=== PATIENT | male | born 1945 | race Caucasian/White ===

== ENCOUNTER → 2019-04-23 | Outpatient (CLI) | payer MEDICARE ==
[~2019-04-23] MED LIST: ASPI325T8 PO; ATOR40TA59 PO; DUTA0.5C PO; EZET10TA18 PO; INSU100V8 SQ; METF500T16 PO; OLME20TA17 PO; SOTA120T PO; TAMS0.4C2 PO
--- NOTE | 2019-04-23 16:37 | RAD ---
MR#: [id number] Date of Study: 04/23/2019 Ordering Physician: JORJE UNGER, Referring Physician: JORJE UNGER, Tech: Tiny Pickens, NIVIA, RVT, RTR APPROVED REPORT Patient Location: OUT-PATIENT Risk Factors Hypertension Smoking Duplex Results A/PTransverseLongitudinal Proximal Aorta 2.3cm2.3cm2.44cm Mid Aorta 2.7cm3.3cm3.2cm Distal Aorta 3.3cm3.0cm3cm Findings Limited images due to bowel gas. The proximal and mid abdominal aorta measure approximately 2.7 x 3.3 x 3.3 cm. No focal aneurysm is n oted. There is calcific plaque throughout the aorta. The distal aorta is not well visualized. Critical Notification Critical Value: No <Conclusion> Limited study due to bowel gas, no focal aneurysmal dilatation noted within these limitations. Signed by : Jorje Unger, Electronically Approved : 04/23/2019 16:36:44
--- NOTE | 2019-04-23 16:38 | RAD ---
MR#: [id number] Date of Study: 04/23/2019 Ordering Physician: JORJE UNGER, Referring Physician: JORJE UNGER, Tech: Tiny Pickens RDMS, RVT, RTR APPROVED REPORT Patient Location : OUT-PATIENT Indications Lower Extremity Edema : Bilateral Findings Grayscale images of the bilateral saphenofemoral junctions do not reveal any obvious evidence of thro mbus. The right great saphenous vein measures 4.3 mm and does not show any evidence of reflux. The left gre at saphenous vein measures 3.7 mm and does not show any evidence of reflux. The bilateral lesser saphenous veins are also negative for reflux. Critical Notification Critical Value: No <Conclusion> 1. No significant venous reflux noted bilaterally Signed by : Jorje Unger, Electronically Approved : 04/23/2019 16:37:51
--- NOTE | 2019-04-23 16:39 | RAD ---
MR#: [id number] Date of Study: 04/23/2019 Ordering Physician: JORJE UGNER, Referring Physician: JORJE UNGER, Tech: Tiny Pickens, RDMS, RVT, RTR APPROVED REPORT Patient Location: OUT-PATIENT Indications Claudication:Bilaterally VELOCITY AND DOPPLER WAVEFORM ANALYSIS RIGHT cm/secWaveformSeverity LEFT cm/secWaveform Severity pCFA 149.0TriphasicpCFA 119.0Triphasic Prof Fem Art. 74.5TriphasicProf Fem Art. 85.9Triphasic Fem Art Prox. 108.5TriphasicFem Art Prox. 103.3Triphasic Fem Art Mid. 112.8TriphasicFem Art Mid. 103.3Triphasic Fem Art Dist. 116.5TriphasicFem Art Dist. 112.0Triphasic Pop Art(AK) 72.7TriphasicPop Art(AK) 66.6Triphasic POTATO PEELING MACHINE OPERATOR Prox. 73.5TriphasicPTA Prox. 64.9Triphasic POTATO PEELING MACHINE OPERATOR Dist. 90.1TriphasicPTA Dist. 95.1Triphasic Per Art Prox. 77.7TriphasicPer Art Prox. 87.9Triphasic CLAUDIO Prox. 70.2TriphasicATA Prox. 75.2Biphasic DPA 66.1BiphasicDPA 101.2Triphasic Findings Grayscale images of the bilateral lower extremity arterial vessels demonstrate mild diffuse calcific plaque. No focal obstruction is noted. Spectral waveforms are triphasic throughout the arterial course and below the knee. No focal obstruct ion noted. Critical Notification Critical Value: No <Conclusion> 1. Normal triphasic waveforms throughout the arterial course with minimal plaque. No focal obstructio n noted Signed by : Jorje Unger, Electronically Approved : 04/23/2019 16:39:35
== END | disposition home or self-care (01) ==
LOC: US 12:33
PROVIDERS: ATTEND Internal Medicine Cardiovascular Disease
DX: R60.0 Localized edema (principal); I73.9 Peripheral vascular disease, unspecified; I10 Essential (primary) hypertension; F17.200 Nicotine dependence, unspecified, uncomplicated
CPT/HCPCS: 76770; 93925; 93970

== ENCOUNTER → 2019-05-10 | Outpatient (CLI) | payer MEDICARE, OTHER ==
[~2019-05-10] MED LIST changes: +REGADENOSON 0.4 MG/5 ML DISP.SYRIN. IV ONE
--- NOTE | 2019-05-10 09:52 | RAD ---
MR#: [id number] Date of Study: 05/10/2019 Ordering Physician: JORJE UNGER, Referring Physician: JORJE UNGER, Tech: Jules Gale MBA, RDMS, RVT, RDCS, RTR APPROVED REPORT Patient Location: OUT-PATIENT Laterality:Bilateral Indications claudication Doppler Spectral Velocity Analysis Right Left pCCA 76/14 cm/spCCA 123/32 cm/s mCCA 73/13 cm/smCCA 101/32 cm/s dCCA 69/17 cm/sdCCA 95/31 cm/s Bulb 72/17 cm/sBulb 112/21 cm/s ECA 153/ cm/sECA 127/ cm/s pICA 50/17 cm/spICA 93/23 cm/s Lillie 44/14 cm/smICA 81/24 cm/s dICA 68/27 cm/sdICA 82/37 cm/s Vert. 51/ cm/sVert. 45/ cm/s Subcl. 110/ cm/sSubcl. 145/ cm/s ICA/CCA 0.89ICA/CCA 0.76 Findings Grayscale images of the bilateral common carotid, internal and external carotid vessels reveals mild plaque but no evidence of high-grade stenosis. Spectral waveforms in the right internal carotid artery are within normal limits. Overall 0 to less t monroe 50% stenosis based on velocity criteria. The external carotid artery velocities are elevated sugg estive of moderate stenosis. On the left similarly the internal carotid vessels are grossly unremarkable. Velocities are within no rmal limits and overall 0 to less than 50% stenosis. The left external carotid artery velocity is aga in mildly elevated suggestive of moderate disease. Normal ICA to CCA ratios bilaterally. Critical Notification Critical Value: No <Conclusion> 1. No significant carotid occlusive disease bilaterally Signed by : Jorje Unger, Electronically Approved : 05/10/2019 09:51:57
--- NOTE | 2019-05-10 09:54 | CARD ---
MR#: [id number] Date of Study: 05/10/2019 Ordering Physician: JORJE UNGER, Referring Physician: JORJE UNGER, Tech: Liv Higgins [facility] APPROVED REPORT EXAM: Two-dimensional and M-mode echocardiogram with Doppler and color Doppler. Other Information Quality : AverageHR: 90bpm Rhythm : NSR INDICATION Dyspnea 2D DIMENSIONS RVDd3.7 (2.9-3.5cm)Left Atrium(2D)4.6 (1.6-4.0cm) IVSd1.3 (0.7-1.1cm)Aortic Root(2D)3.2 (2.0-3.7cm) LVDd5.7 (3.9-5.9cm)LVOT Diameter2.2 (1.8-2.4cm) PWd1.1 (0.7-1.1cm)LVDs4.3 (2.5-4.0cm) FS (%) 25.5 %SV81.0 ml LVEF(%)50.0 (>50%) M-Mode DIMENSIONS Left Atrium(MM)4.72 (2.5-4.0cm)Aortic Root3.39 (2.2-3.7cm) Aortic Valve AoV Peak Petr.106.0cm/sAoV VTI23.6cm AO Peak GR.4.5mmHgLVOT Peak Petr.87.5cm/s AO Mean GR.2mmHgAVA (VMAX)3.13cm2 RODDY (VTI)3.00cm2 Mitral Valve MV E Mbqaokrq95.9cm/sMV E Peak Gr.101mmHg MV DECEL [id number] A Rogbmwmi88.1cm/s E/A Ratio1.4 Pulmonary Valve PV Peak Temngojf081.8cm/s Tricuspid Valve TR P. Sazlwvtj960fh/sRAP YYXFOEVD6iqJn TR Peak Gr.57whXjEFQI28guUm LEFT VENTRICLE The left ventricle is normal size. There is mild concentric left ventricular hypertrophy. Left ventri aicha systolic function is low normal. The Ejection Fraction is 50-55%. There is normal LV segmental wa ll motion. Transmitral Doppler flow pattern is Grade II-pseudonormal filling dynamics. RIGHT VENTRICLE The right ventricle is mildly dilated. There is normal right ventricular wall thickness. The right ve ntricular systolic function is normal. ATRIA The left atrium is mildly dilated. The right atrium is mildly dilated. The interatrial septum is inta ct with no evidence for an atrial septal defect or patent foramen ovale as noted on 2-D or Doppler im aging. AORTIC VALVE The aortic valve is normal in structure and function. The aortic valve is trileaflet. Doppler and Col or Flow revealed no significant aortic regurgitation. There is no significant aortic valvular stenosi s. There is no aortic valvular vegetation. MITRAL VALVE The mitral valve is normal in structure and function. There is no evidence of mitral valve prolapse. There is no mitral valve stenosis. Doppler and Color-flow revealed mild mitral regurgitation. TRICUSPID VALVE The tricuspid valve is normal in structure and function. Doppler and Color Flow revealed trace tricus pid regurgitation. The PA pressure was estimated at 30 mmHg. There is no tricuspid valve prolapse or vegetation. There is no tricuspid valve stenosis. PULMONIC VALVE The pulmonic valve is not well visualized. GREAT VESSELS The aortic root is normal in size. The ascending aorta is normal in size. The IVC is normal in size a nd collapses >50% with inspiration. PERICARDIAL EFFUSION There is no evidence of significant pericardial effusion. Critical Notification Critical Value: No <Conclusion> Left ventricle systolic function is low normal. The Ejection Fraction is 50-55%. There is normal LV segmental wall motion. Doppler and Color-flow revealed mild mitral regurgitation. Signed by : Jorje Unger, Electronically Approved : 05/10/2019 09:53:34
--- NOTE | 2019-05-10 12:55 | RAD ---
MR#: [id number] Date of Study: 05/10/2019 Ordering Physician: JORJE UNGER, Referring Physician: SEBASTIEN GREENBERG Tech: MANOJ Hansen ARRT (R) (N) APPROVED REPORT Test Type: Pharmacological Stress Nurse/Tech: Violeta Raygoza RN Test Indications: Dyspnea Cardiac History: High cholesterol, Diabetes,former smoker Medications: See Electronic Medical Record Medical History: See Electronic Medical Record Resting ECG: SR Resting Heart Rate: 64 bpm Resting Blood Pressure: 120/62mmHg Pretest Chest Pain: No chest pain Nurse/Tech Notes S1,S2 and lungs clear to auscultation. Consent: The procedure was explained to the patient in lay terms. Informed consent was witnessed. Frank eout was entered into [facility]. History and Stress Test performed by MANOJ Hansen ARRT (R) (N) Pharm. Details Pharmacologic stress testing was performed using 0.4mg per 5ml of regadenoson given intravenously ove r 7-10 seconds. Stress Symptoms No chest pain or symptoms. POST EXERCISE Reason for Termination: Infusion complete Target HR: No Max HR: 80 bpm Max Blood Pressure: 138/60mmHg Blood Pressure response to exercise: Normal blood pressure response during stress. Heart Rate response to exercise: WNL Chest Pain: No. Arrhythmia: No. ST Change: No. INTERPRETATION Stress EKG Conclusion: Baseline EKG showed sinus rhythm. No ischemic changes at peak stress. No arr hythmias. Imaging Protocol IMAGE PROTOCOL: Rest Tc-99m/stress Tc-99m 1 day Rest: Stress: Viability: Radiopharm.Tc99m YlvdyqcipJo31t Sestamibi Hvph36kJn 33mCi Img Date 05/10/2019 05/10/2019 Inj-Img Mbww21hcq. 60min. Rest Admin Site:IV - Left AntecubitalAdministrator:MANOJ Hansen ARRT (R)(N) Stress Admin Site: IV - Left AntecubitalAdministrator: RT Olga Layton)(N) STRESS DATA End Diast. Vol.98.0mlLVEDV index BSA42.0ml End Syst. Vol.26.0mlLVESV index BSA11.0ml Myocardial Tefq777.0gEject. Iyzaqkzg11.0% Stress Scores Regional WT0.00Summed WT3.00 Regional WM0.00Summed WM2.00 Study quality was good. Left Ventricular size was Normal at Rest and Stress. Lung uptake was . Left Ventricular ejection fraction is 73%. The rest and stress images show normal perfusion, normal contraction and thickening. LV Perf. Quant 17 Seg. SSS0.00 17 Seg. SRS2.00 17 Seg. SDS0.00 Stress Defect Extent (% LAD)0.00Rest Defect Extent (% LAD)0.00Rev. Defect Extent (% LAD)0.00 Stress Defect Extent (% LCX) 0.00Rest Defect Extent (% LCX)0.00Rev. Defect Extent (% LCX)0.00 Stress Defect Extent (% RCA)0.00Rest Defect Extent (% RCA)0.00Rev. Defect Extent (% RCA)0.00 Stress Defect Extent (% ANASTASIIA)0.00Rest Defect Extent (% ANASTASIIA)0.00Rev. Defect Extent (% ANASTASIIA)0.00 Conclusion 1. Regadenoson cardioisotope stress test did not show any evidence of ischemia or infarct. 2. Normal left ventricular systolic function with ejection fraction calculated at 73%. 3. Low risk for cardiac events. Signed by : Ovidio Vazquez, Electronically Approved : 05/10/2019 12:55:05
== END | disposition home or self-care (01) ==
LOC: NM 07:32
PROVIDERS: ATTEND Internal Medicine Cardiovascular Disease
DX: I34.0 Nonrheumatic mitral (valve) insufficiency (principal); E78.00 Pure hypercholesterolemia, unspecified; E11.9 Type 2 diabetes mellitus without complications; I73.9 Peripheral vascular disease, unspecified; I65.23 Occlusion and stenosis of bilateral carotid arteries; Z87.891 Personal history of nicotine dependence
CPT/HCPCS: 78452; 93017; 93306; 93880; A9500; J2785

== ENCOUNTER → 2019-07-14 | Outpatient (CLI) | payer MEDICARE ==
[~2019-07-14] MED LIST changes: +ALBUTEROL SULFATE 2.5 MG/3 ML NEBU. NEB ONE; -EZET10TA18 PO; +EZET10TA20 PO; -REGADENOSON 0.4 MG/5 ML DISP.SYRIN. IV ONE
--- NOTE | 2019-07-22 13:56 | RESP ---
DATE OF SERVICE: 07/14/2019 PULMONARY FUNCTION TEST ATTENDING PHYSICIAN: Guevara Hernandez MD The patient's FVC was 2.46, which is 54% predicted; FEV1 1.31, which is 40% predicted. The FEV1/FVC ratio was reduced. There was 17% improvement in FVC and 11% improvement in FEV1 post-bronchodilator. Lung volumes showed increased total lung capacity and increased residual volume. Diffusion capacity was normal. IMPRESSION: 1. Moderate obstructive airway disease with an excellent response to bronchodilators, suggesting a component of reactive airway disease as well. 2. Lung volumes consistent with air trapping and hyperinflation. 3. Normal diffusion capacity. EDU ROGERS MD DR: PROSPER/kurtis JOB#: [id number] / [id number]
== END | disposition home or self-care (01) ==
LOC: PF 09:56
PROVIDERS: ATTEND Internal Medicine Cardiovascular Disease
DX: J98.8 Other specified respiratory disorders (principal); I48.91 Unspecified atrial fibrillation; I10 Essential (primary) hypertension; E11.9 Type 2 diabetes mellitus without complications; Z87.891 Personal history of nicotine dependence; Z79.84 Long term (current) use of oral hypoglycemic drugs
CPT/HCPCS: 94060; 94640; 94729; J7613

== ENCOUNTER → 2019-08-25 | Outpatient (CLI) | payer MEDICARE ==
[~2019-08-25] MED LIST changes: -ALBUTEROL SULFATE 2.5 MG/3 ML NEBU. NEB ONE; +ZOLPIDEM 5 MG TABLET. PO ONE
--- NOTE | 2019-09-01 11:00 | SLEEP ---
DATE OF STUDY: 08/25/2019 SLEEP STUDY ATTENDING PHYSICIAN: Dr. Amilcar Mattson REFERRING PHYSICIAN: Kofi Iqbal MD The patient is a 74-year-old who weighs 235 pounds with a BMI of 33. The patient's Cleveland score was 10. The patient underwent split night study performed at [facility]. During the night study, the patient spent 484 minutes in bed and slept for 412 minutes with a sleep efficiency of 85%. Sleep latency was 42 minutes with a REM latency of 206 minutes. Sleep architecture showed normal stage 1 and stage 2 sleep, increased slow wave and normal REM sleep. During the initial diagnostic portion of the study, the patient slept for 88 minutes. During that time, there was 1 obstructive apnea, no mixed or central apneas and 37 hypopneas. The patient's apnea hypopnea index was 26 per hour, supine index 36 per hour. REM sleep was not seen during the diagnostic portion of the study. EKG monitoring revealed an average heart rate of 61 beats per minute, no sustained arrhythmias observed. PLMS were seen at index of 100 per hour and 5 per hour caused EEG arousals. Nocturnal oximetry study during the diagnostic portion showed a mean oxygen saturation in the mid to high 80s with the lowest of 81%. The patient met the criteria for CPAP initiation. It was started at 5 cm water and titrated up to 18 cm water. At the final pressure, the patient slept for 58 minutes. The patient had supine and a brief REM sleep. The patient's AHI was reduced to 0 per hour and oxygen saturation remained above 88%. The patient used a large size full face mask. IMPRESSION: 1. Moderate sleep apnea-hypopnea syndrome with worsening during supine sleep. Absence of REM sleep during the diagnostic portion can underestimate the severity of sleep apnea. 2. Nocturnal hypoxia secondary to UZIEL, but resolved with CPAP. 3. Severe PLMS. RECOMMENDATIONS: 1. CPAP at 18 cm water completely eliminated the patient's sleep apnea and should be used on a nightly basis. 2. Follow up in 4-6 weeks to assess compliance with CPAP and to document clinical improvement. 3. Weight loss is strongly advised. 4. Avoid LATHE TURNER depressants. 5. Cautioned regarding driving until symptoms of sleep apnea resolve with the use of CPAP. 6. The patient should also be further evaluated for symptoms of restless legs during the day and if present, it can be treated with dopaminergic agonist agents. EDU ROGERS MD DR: PROSPER/kurtis JOB#: [id number] / [id number] Jyoti Hays MD, GEORGE MD
== END | disposition home or self-care (01) ==
LOC: SLPLAB 18:57
PROVIDERS: ATTEND Internal Medicine Pulmonary Disease
DX: G47.33 Obstructive sleep apnea (adult) (pediatric) (principal); G47.34 Idiopathic sleep related nonobstructive alveolar hypoventilation; G47.61 Periodic limb movement disorder
CPT/HCPCS: 95810

== ENCOUNTER → 2019-08-27 | Outpatient (CLI) | payer MEDICARE ==
[~2019-08-27] MED LIST changes: -ZOLPIDEM 5 MG TABLET. PO ONE
--- NOTE | 2019-08-27 12:53 | RAD ---
EXAM: Chest CT without intravenous contrast. HISTORY: Smoking history. Congestion. TECHNIQUE: Computed tomographic images of the chest were obtained without contrast. Multiplanar reformatting was performed. *One or more of the following individualized dose reduction techniques were utilized for this examination: 1. Automated exposure control. 2. Adjustment of the mA and/or kV according to patient size. 3. Use of iterative reconstruction technique. COMPARISON: Chest radiograph dated 04/28/2012. FINDINGS: The heart is normal in size. There is a prominent main pulmonary artery. The aorta is normal in caliber and demonstrates normal branching pattern. There are few nonspecific lymph nodes within the mediastinum and bilateral hilar regions. The majority of these are calcified and consistent with healed granulomatous disease. No suspicious noncalcified lymph node is seen. There is mild pulmonary emphysema. There is no pleural effusion or pneumothorax. There is slight increased bilateral extrapleural fat. There is lingular and right middle lobe atelectasis or scarring. There is a 6 mm solid nodule within the anterior left lower lobe. There is an adjacent calcification due to healed granulomatous disease. There is nonspecific groundglass opacity within the posterior right lung base which is likely due to atelectasis. There is a large peripherally calcified nodule within the right upper lobe measuring 2.6 cm. There is a 1.9 cm hypodense lesion within the left hepatic lobe, the attenuation which favors a cyst. There is a 1.2 cm nodule involving the right adrenal gland. There is a healed left third rib fracture. There are sclerotic lesions within the lateral right fifth, sixth and eighth ribs, possibly due to bone islands. There are also a few bone islands within the vertebral column. The superimposed on heterogeneous bone density, limiting evaluation for small lesions. There are sebaceous cyst within the posterior back subcutaneous fat, the largest of which is seen at the midline measuring 2.2 cm. IMPRESSION: 1. Mild pulmonary emphysema and evidence of healed granulomatous disease. 2. 6 mm nodule within the anterior left lower lobe. Follow up according to Fleischner Society criteria. 3. Stable large calcified benign nodule within the right upper lobe. 4. Suspected small cyst within the left hepatic lobe. 5. 1.2 cm right adrenal nodule. 6. Diffusely heterogeneous bone marrow density with scattered foci of sclerosis likely due to bone islands. This limits evaluation for osseous metastases. Electronically signed by: Carol Otto MD (08/27/2019 12:49 PM) [id number]
== END | disposition home or self-care (01) ==
LOC: CT 09:59
PROVIDERS: ATTEND Internal Medicine Pulmonary Disease
DX: R91.8 Other nonspecific abnormal finding of lung field (principal); J43.9 Emphysema, unspecified; E27.8 Other specified disorders of adrenal gland; L72.3 Sebaceous cyst; K76.89 Other specified diseases of liver; F17.200 Nicotine dependence, unspecified, uncomplicated
CPT/HCPCS: 71250

== ENCOUNTER → 2020-05-05 | Outpatient (CLI) | payer MEDICARE ==
--- NOTE | 2020-05-05 08:42 | RAD ---
CT CHEST WO CONTRAST INDICATION: Reason: LUNG NODULE / Spl. Instructions: / History: . COMPARISON STUDY: 08/27/2019. TECHNIQUE: Unenhanced axial images were obtained through the lungs and upper abdomen. Coronal and sagittal multiplanar reconstructions were also obtained. PQRS compliance statement: One or more of the following individualized dose reduction techniques were utilized for this examination: 1. Automated exposure control 2. Adjustment of the mA and/or kV according to patient size 3. Use of iterative reconstruction technique FINDINGS: Lungs and Airways: Stable right upper lobe nodule with coarse popcorn-like calcification and foci of fat measuring 2.7 x 2.6 cm, consistent with pulmonary hamartoma. Stable 6 mm left lower lobe solid nodule (series 8 image 184). Calcified pulmonary granulomas. Centrilobular emphysema. Scattered endobronchial mucous plugging with a couple of areas of branching mucoid impaction. Pleura: The pleural spaces are normal. Heart and Mediastinum: The visualized thyroid gland is normal in size and attenuation. No axillary or supraclavicular lymphadenopathy. No mediastinal, hilar or retrocrural lymphadenopathy. Calcified mediastinal and hilar lymph nodes consistent with remote granulomatous disease. Normal cardiac size. No pericardial effusion. Coronary artery atherosclerotic disease. Atherosclerosis of thoracic aorta. Dilated pulmonary trunk measures 37 mm, which can be seen with pulmonary hypertension. Abdomen: The visualized abdominal organs demonstrate no abnormality. Bones and Soft Tissues: Degenerative changes of the spine. Stable few scattered sclerotic foci. IMPRESSION: Stable 6 mm left lower lobe nodule. Recommend additional 12-18 month follow-up unenhanced chest CT to establish long-term stability. Electronically signed by: Leodan Sherman MD (05/05/2020 8:39 AM) [id number]
== END ==
LOC: CT 07:35
PROVIDERS: ATTEND Internal Medicine Pulmonary Disease
DX: R91.1 Solitary pulmonary nodule (principal); I70.0 Atherosclerosis of aorta; I25.10 Atherosclerotic heart disease of native coronary artery without angina pectoris; J43.2 Centrilobular emphysema
CPT/HCPCS: 71250

== ENCOUNTER → 2021-02-06 | Outpatient (CLI) | payer MEDICARE ==
--- NOTE | 2021-02-06 18:52 | CARD ---
MR#: [id number] Date of Study: 02/06/2021 Ordering Physician: JORJE UNGER, Referring Physician: JORJE UNGER, Tech: Nidhi Lara [facility] APPROVED REPORT EXAM: Two-dimensional and M-mode echocardiogram with Doppler and color Doppler. Other Information Quality : Fair Rhythm : Atrial Fibrillation INDICATION Paroxysmal Atrial Fibrillation 2D DIMENSIONS RVDd3.5 (2.9-3.5cm)Left Atrium(2D)5.0 (1.6-4.0cm) IVSd1.1 (0.7-1.1cm)Aortic Root(2D)3.2 (2.0-3.7cm) LVDd5.4 (3.9-5.9cm)LVOT Diameter2.3 (1.8-2.4cm) PWd1.1 (0.7-1.1cm)FS (%) 4.7 % SV14.9 ml Aortic Valve AoV Peak Petr.141.8cm/sAoV VTI29.3cm AO Peak GR.8.0mmHgLVOT Peak Petr.94.9cm/s AO Mean GR.4mmHgAVA (VMAX)2.86cm2 RODDY (VTI)2.90cm2 Mitral Valve MV E Cxvjpcgz665.0cm/sMV DECEL QYAO582mb MV A Qafiddls23.6cm/sE/A Ratio2.5 Tricuspid Valve TR P. Umjyioan233qd/sRAP LNOFKRPY44jjYq TR Peak Gr.42dmAnDDBY72feZu Pulmonary Vein S1 Dsoxnfwa85.8cm/sD2 Keqovdmu19.6cm/s LEFT VENTRICLE The left ventricle is normal size. There is normal left ventricular wall thickness. Left ventricle sy stolic function is normal. The Ejection Fraction is 55%. There is normal LV segmental wall motion. RIGHT VENTRICLE The right ventricle is normal size. The right ventricular systolic function is normal. ATRIA The left atrium is moderately dilated. The right atrium is mildly dilated. The interatrial septum is intact with no evidence for an atrial septal defect or patent foramen ovale as noted on 2-D or Dopple r imaging. AORTIC VALVE The aortic valve is calcified but opens well. Doppler and Color Flow revealed no significant aortic r egurgitation. There is no significant aortic valvular stenosis. MITRAL VALVE The mitral valve is calcified but opens well. There is no evidence of mitral valve prolapse. There is no mitral valve stenosis. Doppler and Color-flow revealed mild mitral regurgitation. TRICUSPID VALVE The tricuspid valve is normal in structure and function. Doppler and Color Flow revealed trace to mil d tricuspid regurgitation. There is moderate pulmonary hypertension. The PA pressure was estimated at 55 mmHg. There is no tricuspid valve stenosis. PULMONIC VALVE The pulmonic valve is not well visualized. Doppler and Color Flow revealed trace pulmonic valvular re gurgitation. There is no pulmonic valvular stenosis. GREAT VESSELS The aortic root is normal in size. The ascending aorta is not well seen. The IVC is dilated and colla pses <50% with inspiration. PERICARDIAL EFFUSION There is no evidence of significant pericardial effusion. Critical Notification Critical Value: No <Conclusion> Left ventricle systolic function is normal. The Ejection Fraction is 55%. There is normal LV segmental wall motion. The left atrium is moderately dilated. Mild mitral regurgitation. Trace to mild tricuspid regurgitation. There is moderate pulmonary hypertension. The PA pressure was estimated at 55 mmHg. There is no evidence of significant pericardial effusion. Signed by : Ovidio Vazquez, Electronically Approved : 02/06/2021 18:51:26
== END ==
LOC: ECHO 10:49
PROVIDERS: ATTEND Internal Medicine Cardiovascular Disease
DX: I08.3 Combined rheumatic disorders of mitral, aortic and tricuspid valves (principal); I48.0 Paroxysmal atrial fibrillation
CPT/HCPCS: 93306